=== PATIENT | male | born 1930 | race Caucasian/White ===

== ENCOUNTER 2018-12-09 09:10 | Inpatient (IN) | payer MEDICARE, OTHER ==
[~2018-12-09] VITALS: Ht 177.8 cm; Wt 84.8 kg
[2018-12-09] MEDS ORDERED: NS IV 1000 ML 1,000 ML IV ONE (09:25)
[2018-12-09] MEDS ORDERED: ACETAMINOPHEN 500 MG TAB (TYLENOL) PO ONE (09:30)
[2018-12-09 09:35] LABS: BASOPHILS % (AUTO) 0 % (0-10); EOSINOPHILS # (AUTO) 0.1 10^3/uL (0.0-0.3); EOSINOPHILS % (AUTO) 0 % (0-10); HEMATOCRIT 42 % (40-54); HEMOGLOBIN 14.2 G/DL (13.3-17.7); LYMPHOCYTES # (AUTO) 0.3 X 10^3 (1.0-4.0); LYMPHOCYTES % (AUTO) 2 % (12-44); MEAN CORPUSCULAR HEMOGLOBIN 31 PG (25-34); MEAN CORPUSCULAR HGB CONC 34 G/DL (32-36); MEAN CORPUSCULAR VOLUME 90 FL (80-99); MEAN PLATELET VOLUME 9.1 FL (7.4-10.4); MONOCYTES # (AUTO) 0.3 X 10^3 (0.0-1.0); MONOCYTES % (AUTO) 2 % (0-12); NEUTROPHILS # (AUTO) 13.2 X 10^3 (1.8-7.8); NEUTROPHILS % (AUTO) 95 % (42-75); PLATELET COUNT 255 10^3/uL (130-400); RED CELL DISTRIBUTION WIDTH 13.5 % (10.0-14.5); WHITE BLOOD COUNT 13.9 10^3/uL (4.3-11.0)
[2018-12-09] MEDS ORDERED: LEVE750T62 PO (09:45)
[2018-12-09 09:48] LABS: INR 1.1 (0.8-1.4); PROTHROMBIN TIME PATIENT 14.6 SEC (12.2-14.7)
[2018-12-09 09:55] LABS: ALANINE AMINOTRANSFERASE 15 U/L (0-55); ALBUMIN 3.9 GM/DL (3.2-4.5); ALKALINE PHOSPHATASE 90 U/L (40-136); BILIRUBIN,TOTAL 0.9 MG/DL (0.1-1.0); BUN/CREATININE RATIO 23; CALCIUM 9.3 MG/DL (8.5-10.1); CARBON DIOXIDE 26 MMOL/L (21-32); CHLORIDE 103 MMOL/L (98-107); CREATININE SERUM 1.06 MG/DL (0.60-1.30); GFR ESTIMATED > 60; GLUCOSE 95 MG/DL (70-105); POTASSIUM 4.4 MMOL/L (3.6-5.0); SODIUM 134 MMOL/L (135-145); TOTAL PROTEIN 7.3 GM/DL (6.4-8.2)
[2018-12-09 10:08] LABS: BAND NEUTROPHILS 6 %; BASOPHILS % (MANUAL) 0 %; EOSINOPHILS % (MANUAL) 0 %; LYMPHOCYTES % (MANUAL) 2 %; MONOCYTES % (MANUAL) 2 %; NEUTROPHILS % (MANUAL) 90 %; RBC MORPH NORMAL
--- NOTE | 2018-12-09 10:08 | Diagnostic Imaging Report ---
INDICATION: Shaking, stiffness COMPARISON: None available TECHNIQUE: Single radiograph of the chest dated 12/09/2018. FINDINGS: The cardiac silhouette is at the upper limits of normal in size. No significant pulmonary vascular congestion. The right lung is clear. Blunting of the left costophrenic sulcus with obscuration of the lateral aspect of the left hemidiaphragm. No right-sided pleural effusion. No pneumothorax. Scattered osseous degenerative changes without acute osseous abnormality. IMPRESSION: Blunting of the left costophrenic angle which may relate to small amount of pleural fluid or pleural scarring. Prominent epicardial fat pad would appear similar. Focal infiltrate less likely. Comparison to prior imaging would be beneficial. Dictated by: Dictated on workstation # [id number]
[2018-12-09 11:01] LABS: BILIRUBIN,URINE NEGATIVE (NEGATIVE); CLARITY,URINE CLEAR; COLOR,URINE YELLOW; GLUCOSE, URINE (UA) NEGATIVE (NEGATIVE); KETONES,URINE NEGATIVE (NEGATIVE); LEUKOCYTE ESTERASE ,URINE NEGATIVE (NEGATIVE); NITRITE,URINE NEGATIVE (NEGATIVE); PH,URINE 6.5 (5-9); PROTEIN,URINE NEGATIVE (NEGATIVE); UROBILINOGEN,URINE NORMAL (NORMAL)
[2018-12-09 11:09] LABS: BACTERIA,URINE NEGATIVE /HPF; RBC,URINE RARE /HPF; SQUAMOUS EPITHELIAL CELL,UR RARE /HPF; WBC,URINE RARE /HPF
[2018-12-09] MEDS ORDERED: PIPERACILLIN/TAZOBACTAM (BULK) 4.5 GM in NS (IVPB) 100 ML IV ONE (11:30)
--- NOTE | 2018-12-09 11:57 | ED General ---
General Chief Complaint: General Problems/Pain Stated Complaint: SHAKING,STIFFNESS Nursing Triage Note: PT BROUGHT IN BY [facility] FROM [facility] WITH COMPLAINT OF SHAKINESS, WEAKNESS, AND STIFFNESS. PT STATES HE HAD DIFFICULTY WALKING TO THE BATHROOM THIS MORNING. DENIES PAIN. Nursing Sepsis Screen: No Definite Risk Source of Information: Patient, EMS, Family Exam Limitations: No Limitations History of Present Illness Date Seen by Provider: December 09, 2018 Time Seen by Provider: 09:18 Initial Comments This 88-year-old gentleman presents to the emergency room from assisted living by EMS for reasons of shaking and stiffness. He is noted to be febrile on arrival. He complains of chills along with his shivering. Today he had significant difficulty ambulating. He has not slept well for the past couple of days. He is disoriented to month but oriented to person and place. He reportedly has some short-term memory difficulties and may be developing early dementia. notes that he has coughed some over the past couple of days. Allergies and Home Medications Allergies Coded Allergies: No Known Drug Allergies (Unverified , 12/09/18) Patient Home Medication List Home Medication List Reviewed: Yes Review of Systems Review of Systems Constitutional: see HPI EENTM: no symptoms reported Respiratory: see HPI Cardiovascular: no symptoms reported Gastrointestinal: no symptoms reported Genitourinary: no symptoms reported Musculoskeletal: see HPI Skin: no symptoms reported Psychiatric/Neurological: See HPI Hematologic/Lymphatic: No Symptoms Reported Immunological/Allergic: no symptoms reported Past Qsmfatr-Hqyeul-Hgtyoj Hx Past Med/Social Hx: Reviewed and Corrections made Patient Social History Alcohol Use: Denies Use Recreational Drug Use: No Smoking Status: Never a Smoker Recent Foreign Travel: No Contact w/Someone Who Travel: No Recent Infectious Disease Expo: No Recent Hopitalizations: No Immunizations Up To Date Tetanus Booster (TDap): Unknown Seasonal Allergies Seasonal Allergies: No Past Medical History Surgeries: Yes Coronary Stent Respiratory: No Cardiac: Yes Coronary Artery Disease (coronary vasospasm) Neurological: Yes Concussion, Dementia (memory difficulty, possible early dementia), Seizure Disorder, TIA Reproductive Disorders: No Gastrointestinal: Yes (gastroparesis) Endocrine: No HEENT: No Cancer: No Psychosocial: No Integumentary: No Physical Exam-Suspected Sepsis Physical Exam Vital Signs Vital Signs - First Documented 12/09/18 09:17 Temp 101.1 Pulse 113 Resp 20 B/P (MAP) 98/65 (76) Pulse Ox 92 O2 Delivery Room Air Capillary Refill : Less Than 3 Seconds Blood Pressure Mean: 76 Height, Weight, BMI Height: 5'10.00" Weight: 187lbs. oz. 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 manager II-XII Norm as Tested, Motor Weakness (mild, global) Skin: normal color, warm/dry Focused Exam Lactate Level 12/09/18 09:22: Lactic Acid Level 1.33 Lactic Acid Level Laboratory Tests Test 12/09/18 09:22 Lactic Acid Level 1.33 MMOL/L (0.50-2.00) Progress/Results/Core Measures Suspected Sepsis Recent Fever Within 48 Hours: No Infection Criteria Present: None New/Unexplained Altered Menta: No Sepsis Screen: No Definite Risk SIRS Temperature:101.1 Pulse: 113 Respiratory Rate: 20 Laboratory Tests 12/09/18 09:22: White Blood Count 13.9H Blood Pressure 98 /65 Mean: 76 12/09/18 09:22: Lactic Acid Level 1.33 Laboratory Tests 12/09/18 09:22: Creatinine 1.06, INR Comment 1.1, Platelet Count 255, Total Bilirubin 0.9 Results/Orders Lab Results Laboratory Tests Test 12/09/18 09:22 12/09/18 10:55 Range/Units White Blood Count 13.9 H 4.3-11.0 10^3/uL Red Blood Count 4.64 4.35-5.85 10^6/uL Hemoglobin 14.2 13.3-17.7 G/DL Hematocrit 42 40-54 % Mean Corpuscular Volume 90 80-99 FL Mean Corpuscular Hemoglobin 31 25-34 PG Mean Corpuscular Hemoglobin Concent 34 32-36 G/DL Red Cell Distribution Width 13.5 10.0-14.5 % Platelet Count 255 130-400 10^3/uL Mean Platelet Volume 9.1 7.4-10.4 FL Neutrophils (%) (Auto) 95 H 42-75 % Lymphocytes (%) (Auto) 2 L 12-44 % Monocytes (%) (Auto) 2 0-12 % Eosinophils (%) (Auto) 0 0-10 % Basophils (%) (Auto) 0 0-10 % Neutrophils # (Auto) 13.2 H 1.8-7.8 X 10^3 Lymphocytes # (Auto) 0.3 L 1.0-4.0 X 10^3 Monocytes # (Auto) 0.3 0.0-1.0 X 10^3 Eosinophils # (Auto) 0.1 0.0-0.3 10^3/uL Basophils # (Auto) 0.0 0.0-0.1 10^3/uL Neutrophils % (Manual) 90 % Lymphocytes % (Manual) 2 % Monocytes % (Manual) 2 % Eosinophils % (Manual) 0 % Basophils % (Manual) 0 % Band Neutrophils 6 % Blood Morphology Comment NORMAL Prothrombin Time 14.6 12.2-14.7 SEC INR Comment 1.1 0.8-1.4 Activated Partial Thromboplast Time 30 24-35 SEC Sodium Level 134 L 135-145 MMOL/L Potassium Level 4.4 3.6-5.0 MMOL/L Chloride Level 103 98-107 MMOL/L Carbon Dioxide Level 26 21-32 MMOL/L Anion Gap 5 5-14 MMOL/L Blood Urea Nitrogen 24 H 7-18 MG/DL Creatinine 1.06 0.60-1.30 MG/DL Estimat Glomerular Filtration Rate > 60 BUN/Creatinine Ratio 23 Glucose Level 95 70-105 MG/DL Lactic Acid Level 1.33 0.50-2.00 MMOL/L Calcium Level 9.3 8.5-10.1 MG/DL Corrected Calcium 9.4 8.5-10.1 MG/DL Total Bilirubin 0.9 0.1-1.0 MG/DL Aspartate Amino Transf (AST/SGOT) 22 5-34 U/L Alanine Aminotransferase (ALT/SGPT) 15 0-55 U/L Alkaline Phosphatase 90 40-136 U/L Total Protein 7.3 6.4-8.2 GM/DL Albumin 3.9 3.2-4.5 GM/DL Urine Color YELLOW Urine Clarity CLEAR Urine pH 6.5 5-9 Urine Specific [place] 1.015 L 1.016-1.022 Urine Protein NEGATIVE NEGATIVE Urine Glucose (UA) NEGATIVE NEGATIVE Urine Ketones NEGATIVE NEGATIVE Urine Nitrite NEGATIVE NEGATIVE Urine Bilirubin NEGATIVE NEGATIVE Urine Urobilinogen NORMAL NORMAL MG/DL Urine Leukocyte Esterase NEGATIVE NEGATIVE Urine RBC (Auto) NEGATIVE NEGATIVE Urine RBC RARE /HPF Urine WBC RARE /HPF Urine Squamous Epithelial Cells RARE /HPF Urine Crystals NONE /LPF Urine Bacteria NEGATIVE /HPF Urine Casts NONE /LPF Urine Mucus NEGATIVE /LPF Urine Culture Indicated NO My Orders Orders - BRETT RASCON MD Cbc With Automated Diff (12/09/18 09:23) Comprehensive Metabolic Panel (12/09/18:23) Blood Culture (12/09/18:23) Sputum Culture (12/09/18:23) Urinalysis (12/09/18:23) Urine Culture (12/09/18:23) Protime With Inr (12/09/18:) Partial Thromboplastin Time (12/09/18:23) Chest 1 View, Ap/Pa Only (12/09/18 09:23) Ed Iv/Invasive Line Start (12/09/18 09:23) Ed Iv/Invasive Line Start (12/09/18:23) Vital Signs Adult Sepsis Patie Q15M (12/09/18:23) O2 (12/09/18 09:23) Remove Rings In Anticipation O (12/09/18:23) Lactic Acid Analyzer (12/09/18:23) Ns Iv 1000 Ml (Sodium Chloride 0.9%) (12/09/18 09:25) Acetaminophen Tablet (Tylenol Tablet) (12/09/18 09:30) Manual Differential (12/09/18 09:22) Piperacillin/Tazobactam (Bulk) (Zosyn In (12/09/18 11:30) Medications Given in ED Current Medications Medications Dose Ordered Sig/Chaparrita Route Start Time Stop Time Status Last Admin Dose Admin Acetaminophen 1,000 mg ONCE ONCE PO 12/09/18 09:30 12/09/18 09:31 DC 12/09/18 09:35 1,000 MG Piperacillin Sod/ Tazobactam Sod 4.5 gm/Sodium Chloride 120 ml @ 240 mls/hr ONCE ONCE IV 12/09/18 11:30 12/09/18 11:59 DC 12/09/18 11:44 240 MLS/HR Sodium Chloride 1,000 ml @ 0 mls/hr Q0M ONCE IV 12/09/18 09:25 12/09/18 09:26 DC 12/09/18 09:35 1,000 MLS/HR Vital Signs/I&O 12/09/18 09:17 Temp 101.1 Pulse 113 Resp 20 B/P (MAP) 98/65 (76) Pulse Ox 92 O2 Delivery Room Air Capillary Refill : Less Than 3 Seconds Blood Pressure Mean: 76 Progress Note : Progress Note Patient was found to be febrile and tachycardic on presentation. Septic workup was pursued. Pneumonia was suspected based off of chest x-ray. Initial antibiotic therapy was started in the ER with Zosyn. Case was discussed with Dr. Rae who agrees with admission. Since patient is coming from the [facility] assisted living setting, we will continue antibiotic therapy with Rocephin and azithromycin. Patient was also treated with a liter of IV fluid and Tylenol. Diagnostic Imaging Diagonstic Imaging: Xray Plain Films/CT/US/NM/MRI: chest Comments Chest x-ray viewed by me and report reviewed. See report below: NAME: IKER SOL [facility] REC#: [id number] PT STATUS: ADM IN : 1930 PHYSICIAN: BRETT RASCON MD ADMIT DATE: 12/09/18 Signed Date of Exam: 12/09/18 CHEST 1 VIEW, AP/PA ONLY INDICATION: Shaking, stiffness COMPARISON: None available TECHNIQUE: Single radiograph of the chest dated 12/09/2018. FINDINGS: The cardiac silhouette is at the upper limits of normal in size. No significant pulmonary vascular congestion. The right lung is clear. Blunting of the left costophrenic sulcus with obscuration of the lateral aspect of the left hemidiaphragm. No right-sided pleural effusion. No pneumothorax. Scattered osseous degenerative changes without acute osseous abnormality. IMPRESSION: Blunting of the left costophrenic angle which may relate to small amount of pleural fluid or pleural scarring. Prominent epicardial fat pad would appear similar. Focal infiltrate less likely. Comparison to prior imaging would be beneficial. Dictated by: Dictated on workstation # [id number] Dict: 12/09/18 0944 Trans: 12/09/18 1243 Interpreted by: BRAULIO ROSENBERG MD Electronically signed by: BRAULIO ROSENBERG MD 12/09/18 1243 Departure Communication (Admissions) Time/Spoke to Admitting Phy: 11:50 Dr. Ankush Rae Impression Primary Impression: Sepsis Qualified Codes: A41.9 - Sepsis, unspecified organism Additional Impressions: Right lower lobe pneumonia Qualified Codes: J18.1 - Lobar pneumonia, unspecified organism Weakness Disposition: 09 ADMITTED INPATIENT Condition: Improved Admissions Decision to Admit Reason: Admit from ER (General) Decision to Admit/Date: December 09, 2018 Time/Decision to Admit Time: 11:20 BRETT RASCON MD December 09, 2018 11:57
[2018-12-09] MEDS ORDERED: ACETAMINOPHEN 500 MG TAB (TYLENOL) PO PRN (13:45)
[2018-12-09] MEDS ORDERED: ONDANSETRON 4 MG/2 ML (SDV) Z0FRAN IV PRN (13:45)
[2018-12-09] MEDS ORDERED: AZITHROMYCIN 500 MG/NS 250 ML IVPB IV NR ×2 (13:45)
[2018-12-09] MEDS ORDERED: NS IV 1000 ML 1,000 ML IV SCH (13:45)
[2018-12-09] MEDS ORDERED: CHOL20003 PO (14:30)
[2018-12-09] MEDS ORDERED: FOLI0.4T2 PO (14:30)
--- NOTE | 2018-12-09 14:30 | NUR ---
SPOKE WITH THE PATIENT AND HIS ABOUT MEDICATIONS. THEY STATE THE ONLY PRESCRIPTION HE IS TAKING IS THE KEPPRA ER 750MG BID, IT WAS LAST FILLED AT [facility] ON 11-10-18 FOR 90 DAYS ACCORDING TO THE EXT MED HX. THEY STATE THEY RECENTLY MOVED HERE FROM [place] AND IN THE MOVE LOST HIS KEPPRA TABLETS SO HAD THEM FILLED AT [facility], SINCE THEN THEY HAVE FOUND THE LOST BOTTLE SO HE HAD EXTRAS AND HAS NOT REFILLED AT [facility] YET. HE TAKES VITAMIN D AND FOLIC ACID OTC DAILY.
[2018-12-09 15:15] VITALS: BP 98/65
[2018-12-09] MEDS ORDERED: RT-ALBUTEROL SULF 2.5 MG/3 ML PRE-MIX VIAL INH PRN (15:30)
[2018-12-09 15:32] VITALS: BP 98/65
[2018-12-09 16:00] VITALS: BP 108/59
[2018-12-09] MEDS: cefTRIAXone 1,000 MG/SWFI 10 ML IV PUSH IV SCH ×2 (17:18)
[2018-12-09] MEDS: RT-ALBUTEROL SULF 2.5 MG/3 ML PRE-MIX VIAL INH SCH (19:19)
[2018-12-09 20:00] VITALS: BP 103/59
[2018-12-09 23:44] VITALS: BP 94/55
[2018-12-10 03:54] VITALS: BP 111/54
[2018-12-10] MEDS: RT-ALBUTEROL SULF 2.5 MG/3 ML PRE-MIX VIAL INH SCH ×2 (07:29→19:28)
[2018-12-10 08:00] VITALS: BP 103/57
[2018-12-10] MEDS: AZITHROMYCIN 250 MG TAB (ZITHROMAX) PO SCH (09:15)
--- NOTE | 2018-12-10 12:43 | History & Physical-Hospitalist ---
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 They have been living at [facility] an assisted living facility. Their children are here this morning and living in [place]. The ultimate plan as they were not able to get a sufficient assisted living facility in their home [place], is to stay here until a new facility currently being built opens. The patient and his lives in [place] immediately prior to this move. The states that in the recent past he has seemingly been declining more rapidly. He becomes quite forgetful. During the last week he began to kick brown rice on the stove and then walked away. It burned before he returned. At any rate he had been having issues with frequency of urination and very small amounts of urine production. He had a TURP in 2013. She describes symptoms suggesting the possibility of urge incontinence as well. Finally he has been having some incontinence of stool as well he became more clearly ill on and by 03 100 on Wednesday was again having sweats and chills. TheY then later came to the emergency room where he was found to have a temperature maximum of 101.1. His white blood count was 13,900. The laboratory called me first thing this morning to report that he was growing gram-negative rods from his blood. Date Seen 12/10/18 Time Seen by a Provider: 12:38 Attending Physician Ankush Aguirre MD PCP Mack Strickland DO Referring Physician Date of Admission December 09, 2018 at 12:02 Home Medications & Allergies Home Medications Reviewed patient Home Medication Reconciliation performed by pharmacy medication reconciliations collections technician and/or nursing. Patients Allergies have been reviewed. Allergies Allergies Coded Allergies No Known Drug Allergies (Unverified12/09/18) Past Eyhekpe-Dafhmq-Awkaph Hx Past Med/Social Hx: Reviewed Nursing Past Med/Soc Hx, Reviewed and Corrections made Patient Social History Alcohol Use: Denies Use Recreational Drug Use: No Smoking Status: Never a Smoker Recent Foreign Travel: No Contact w/other who traveled: No Recent Hopitalizations: No Recent Infectious Disease Expo: No Immunizations Up To Date Tetanus Booster (TDap): Unknown Seasonal Allergies Seasonal Allergies: No Past Medical History Surgeries: Coronary Stent Cardiac: Coronary Artery Disease (coronary vasospasm) Neurological: Concussion, Dementia (memory difficulty, possible early dementia), Seizure Disorder, TIA Reproductive: No Review of Systems Constitutional: see HPI EENTM: no symptoms reported Respiratory: no symptoms reported Cardiovascular: no symptoms reported Gastrointestinal: diarrhea Genitourinary: see HPI, frequency, hesitancy, incontinence, nocturia Musculoskeletal: other (he uses a cane and has had several falls) Psychiatric/Neurological: Seizure (evident with several apparent tonic episodes over the last 2 or 3 years.), Weakness, Other (increasing episodes of confusion.) Physical Exam Physical Exam Vital Signs Vital Signs - First Documented 12/09/18 09:17 Temp 101.1 Pulse 113 Resp 20 B/P (MAP) 98/65 (76) Pulse Ox 92 O2 Delivery Room Air Capillary Refill : Less Than 3 Seconds Height, Weight, BMI Height: 5'10.00" Weight: 187lbs. 0.0oz. 84.607184ww; 26.8 BMI Method:Stated General Appearance: No Apparent Distress, WD/WN, Other (well groomed) HEENT: Normal ENT Inspection Neck: Normal Inspection Respiratory: Chest Non Tender, Lungs Clear, Normal Breath Sounds, No Accessory Muscle Use, No Respiratory Distress Cardiovascular: Regular Rate, Rhythm, No Edema, No Gallop, No JVD, No Murmur, Normal Peripheral Pulses Gastrointestinal: Normal Bowel Sounds, No Organomegaly, No Pulsatile Mass, Non Tender, Soft Back: Normal Inspection Neurologic/Psychiatric: Alert, Other (he exhibited several statements with confusion over timing of events) Skin: Normal Color Results Results/Procedures Labs Laboratory Tests 12/09/18 09:22 Patient resulted labs reviewed. Assessment/Plan Admission Diagnosis Bacteremia with rigors. 2.urinary incontinence and dysfunction. 3.reported increasing confusion over recent months Admission Status: Inpatient Order (span 2 midnights) Reason for Inpatient Admission: Bacteremia. Clinical Quality Measures DVT/VTE Risk/Contraindication: Risk Factor Score Per Nursin RFS Level Per Nursing on Admit: 4+=Very High ANKUSH AGUIRRE MD Dec 10, 2018 12:43
[2018-12-10] MEDS: cefTRIAXone 1,000 MG/SWFI 10 ML IV PUSH IV SCH ×2 (14:44)
[2018-12-10 15:57] VITALS: BP 119/53
--- NOTE | 2018-12-10 17:51 | NUR ---
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
[2018-12-10 20:06] VITALS: BP 127/66
[2018-12-10] MEDS ORDERED: LEVETIRACETAM 750 MG PO SCH (21:00)
[2018-12-11] VITALS (7 sets, daily range): BP systolic 113–128; BP diastolic 55–71
[2018-12-11] MEDS ORDERED: PATIENT MAY USE OWN MEDS, ALL MC SCH (08:30)
[2018-12-11] MEDS: AZITHROMYCIN 250 MG TAB (ZITHROMAX) PO SCH (09:23)
[2018-12-11] MEDS: LEVETIRACETAM 750 MG PO SCH ×2 (09:23→21:10)
[2018-12-11] MEDS: cefTRIAXone 1,000 MG/SWFI 10 ML IV PUSH IV SCH ×2 (14:09)
--- NOTE | 2018-12-11 14:19 | Progress Note-Hospitalist ---
Progress Note Progress Notes/Assess & Plan Date Seen 12/11/18 Time Seen by Provider: 14:15 Assessment & Plan The patient is much more lively this morning than yesterday. His orientation also appears to be improved. He is afebrile. The culture and sensitivity are not available at this point. He has an appetite and is eating well. Physical exam: Lungs are clear to auscultation. CV is regular. Abdomen is soft. Extremities show no pedal edema. Impression: Gram-negative bacteremia. Plan: Continue present antibiotics. Hope for ID and sensitivity Focused Exam Lactate Level 12/09/18 09:22: Lactic Acid Level 1.33 SABINE AGUIRRE MD Dec 11, 2018 14:19
[2018-12-12] VITALS: BP 104/85
[2018-12-12 04:00] VITALS: BP 118/63
[2018-12-12 04:58] LABS: BASOPHILS % (AUTO) 1 % (0-10); EOSINOPHILS # (AUTO) 0.5 10^3/uL (0.0-0.3); EOSINOPHILS % (AUTO) 7 % (0-10); HEMATOCRIT 38 % (40-54); HEMOGLOBIN 12.9 G/DL (13.3-17.7); LYMPHOCYTES # (AUTO) 1.1 X 10^3 (1.0-4.0); LYMPHOCYTES % (AUTO) 16 % (12-44); MEAN CORPUSCULAR HEMOGLOBIN 31 PG (25-34); MEAN CORPUSCULAR HGB CONC 34 G/DL (32-36); MEAN CORPUSCULAR VOLUME 90 FL (80-99); MEAN PLATELET VOLUME 9.5 FL (7.4-10.4); MONOCYTES # (AUTO) 1.2 X 10^3 (0.0-1.0); MONOCYTES % (AUTO) 18 % (0-12); NEUTROPHILS # (AUTO) 4.1 X 10^3 (1.8-7.8); NEUTROPHILS % (AUTO) 59 % (42-75); PLATELET COUNT 229 10^3/uL (130-400); RED CELL DISTRIBUTION WIDTH 13.3 % (10.0-14.5); WHITE BLOOD COUNT 6.9 10^3/uL (4.3-11.0)
[2018-12-12 08:00] VITALS: BP 124/62
[2018-12-12] MEDS: AZITHROMYCIN 250 MG TAB (ZITHROMAX) PO SCH (08:45)
[2018-12-12] MEDS: LEVETIRACETAM 750 MG PO SCH ×2 (08:45→20:39)
[2018-12-12 12:00] VITALS: BP 124/61
[2018-12-12] MEDS: CEFEPIME 2,000 MG/SWFI 20 ML IV PUSH IV SCH ×2 (14:29)
--- NOTE | 2018-12-12 15:23 | Progress Note-Hospitalist ---
Progress Note Progress Notes/Assess & Plan Date Seen 12/12/18 Time Seen by Provider: 02:45 Assessment & Plan The patient reports that he feels a bit better. We have received the culture report on his blood cultures. Regrettably these are growing Pseudomonas and are not sensitive to our empiric first choice of antibiotics this has been adjusted. Physical exam: He is alert. Lungs show rather distant breath sounds but no wheezing or rhonchi. CV is regular. Impression: Pseudomonas bacteremia. Plan: See above. SABINE AGUIRRE MD Dec 12, 2018 15:23
[2018-12-12 15:35] VITALS: BP 129/71
--- NOTE | 2018-12-12 15:45 | NUR ---
Pastoral care visit.
[2018-12-12 19:30] VITALS: BP 116/57
[2018-12-13] VITALS (7 sets, daily range): BP systolic 110–125; BP diastolic 60–74
[2018-12-13] MEDS: LEVETIRACETAM 750 MG PO SCH ×2 (08:51→20:36)
[2018-12-13] MEDS: CEFEPIME 2,000 MG/SWFI 20 ML IV PUSH IV SCH ×2 (08:51)
[2018-12-13] MEDS: AZITHROMYCIN 250 MG TAB (ZITHROMAX) PO SCH (08:51)
--- NOTE | 2018-12-13 12:34 | Progress Note-Hospitalist ---
Progress Note Progress Notes/Assess & Plan Date Seen 12/13/18 Time Seen by Provider: 12:31 Assessment & Plan The patient is feeling more vigorous. He is now at day 2 of treatment of the blood culture with Pseudomonas. This can be given and a once a day injection but he will need to complete 10 days. This has been cleared by the family and would allow them to return to the [facility]. Accordingly we will seek to plant a more in during IV site. Physical exam: Lungs are clear to auscultation. CV is regular without murmur. Extremities show no pedal edema. Vital signs are stable. Impression: Pseudomonas bacteremia Plan: Arrange for PICC line SABINE AGUIRRE MD Dec 13, 2018 12:34
[2018-12-13] MEDS ORDERED: CEFE2PIG IV (12:52)
--- NOTE | 2018-12-13 13:03 | NUR ---
CM/RYLAN. [place] [facility] with his spouse Laya. OP IV Rx: Coordinated with [facility] for Cefepime daily x 8 days. Son Dyllan Shah visited with his parents and coordinated that Mrs. Shah will transport patient daily for this regime. SUMMARY: Patient and are considered independent per Bernabe RN/Estella and [facility] Familia/Camille. The facility does not provide any daily services to them and confirmed they were not able to assist in any way with home infusion. Options were HHC with home infusion vs OP services, and there were concerns for any home administration. Bahman Mijares was instrumental in discussing this with his parents and getting the final plan in place. PICC line ordered, patient will be discharged today if PICC is placed timely. Coordinated with [facility] staff.
--- NOTE | 2018-12-13 13:22 | NUR ---
NOTE THAT DR AGUIRRE ORDERED PICC LINE PLACEMENT -- PICC LINE RNS ON FLOOR AND QUESTIONED PICC LINE OR MID LINE -- THIS RN TALKED TO DR AGUIRRE HE VOICED WHICH EVERY THEY FELT WOULD GET HIM THROUGH 2 WEEKS OF OUTPT ANTIBXS -- ADVISED HIM THEY CHOSSE MID LINE PLACEMENT --
--- NOTE | 2018-12-13 13:32 | Occupational Therapy Eval ---
OT Evaluation-General/PLF Medical Diagnosis Admission Date December 09, 2018 at 12:02 Medical Diagnosis: Gram-negative bacteremia. Onset Date: Dec 13, 2018 Therapy Diagnosis Therapy Diagnosis: impaired ADLs and mobility Height/Weight Height (Feet): 5 Height (Inches): 10.00 Weight (Pounds): 187 Weight (Ounces): 0.0 Precautions Precautions/Isolations: Fall Prevention, Standard Precautions Safety Interventions: Notify Family, Bed Exit Alarm Weight Bear Status Weight Bearing Restriction: Weight Bearing/Tolerated Referral Referral Reason: Activity Tolerance, Self Care, Evaluation/Treatment Medical History Additional Medical History Surgeries: Coronary Stent Cardiac: Coronary Artery Disease (coronary vasospasm) Neurological: Concussion, Dementia (memory difficulty, possible early dementia), Seizure Disorder, TIA Reproductive: No Current History per h&P: "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 They have been living at an assisted living facility. Their children are here this morning and living in [place]. The ultimate plan as they were not able to get a sufficient assisted living facility in their home [place], is to stay here until a new facility currently being built opens. The patient and his lives in [place] immediately prior to this move. The states that in the recent past he has seemingly been declining more rapidly. He becomes quite forgetful. During the last week he began to kick brown rice on the stove and then walked away. It burned before he returned. At any rate he had been having issues with frequency of urination and very small amounts of urine production. He had a TURP in 2013. She describes symptoms suggesting the possibility of urge incontinence as well. Finally he has been having some incontinence of stool as well he became more clearly ill on and by 03 100 on Wednesday was again having sweats and chills. TheY then later came to the emergency room where he was found to have a temperature maximum of 101.1. His white blood count was 13,900. The laboratory called me mery jane this morning to report that he was growing gram-negative rods from his blood." Reviewed History: Yes Social History Home: Assisted Living (independent living with spouse) Current Living Status: Significant Other Entry Into Home: Level Entry ADL-Prior Level of Function Therapy Code Descriptions/Definitions Functional [place] Measure: 0=Not Assessed/NA 4=Minimal Assistance 1=Total Assistance 5=Supervision or Setup 2=Maximal Assistance 6=Modified [place] 3=Moderate Assistance 7=Complete [place] Therapy Quality Codes: 6 Independent with activity with or without an assistive device 5 Patient requires set up or clean up by helper. Patient completes activity by themselves 4 Supervision or touching assist (CGA). [place] provide cues , steadying assist 3 The helper provides less than half the effort to complete the activity 2 The helper provides more than half the effort to complete the activity 1 Dependent. The helper does all the effort to complete an activity 7 Patient refused to complete or attempt activity 9 The patient did not perform the activity before the current illness or injury 88 Not attempted due to Medical conditions or safety concerns Functional Abilities and Goals: Independent: Patient completed the activities by him/herself, with or without an assistive device, with no assistance from a helper. Needed Some Help: Patient needed partial assistance from another person to complete activities. Dependent: A helper completed the activities for the patient. Unknown: Not Applicable: Self Care: Independent Functional Cognition: Independent DME/Equipment: Tub/Shower Drive Self: No OT Current Status Subjective pt lying in bed upon O T arrival. pt agreed to OT evaluation session. spouse present in room. pt complains of no pain. Pain Numeric Pain Scale: 0-No Pain Appearance pt is oriented but is forgetful throughout session. I.e. pt is instructed to ambulate to chair. upon standing pt stated "what are we doing again?" Mental Status/Objective Patient Orientation: Person, Place, Time, Situation Current Glasses/Contacts: Yes Hearing Aids: Yes Dentures/Partials: Yes Hand Dominance: Right Upper Extremity ROM WFL Upper Extremity Coordination WFL carlos UE Upper Extremity Sensation WFL carlos UE Upper Extremity Strength WFL carlos UE ADL-Treatment Therapy Code Descriptions/Definitions Functional [place] Measure: 0=Not Assessed/NA 4=Minimal Assistance 1=Total Assistance 5=Supervision or Setup 2=Maximal Assistance 6=Modified [place] 3=Moderate Assistance 7=Complete [place] Therapy Quality Codes: 6 Independent with activity with or without an assistive device 5 Patient requires set up or clean up by helper. Patient completes activity by themselves 4 Supervision or touching assist (CGA). [place] provide cues , steadying assist 3 The helper provides less than half the effort to complete the activity 2 The helper provides more than half the effort to complete the activity 1 Dependent. The helper does all the effort to complete an activity 7 Patient refused to complete or attempt activity 9 The patient did not perform the activity before the current illness or injury 88 Not attempted due to Medical conditions or safety concerns pt dem ability to perform LB dressing with increased timing secondary to decrease ROM in left LE( PLOF), UB dressing (robe) with set up, grooming (washin ghands with CGA for saety/ balance while standing, and functional transfer with CGA for safety/ balance while using RW. noted decrease safety awareness with RW requiring MOD VC for safety. pt stated he uses FRW and SPC at home. Education Teaching Recipient: Patient, Family Teaching Methods: Discussion Response to Teaching: Verbalize Understanding OT Short Term Goals Short Term Goals Grooming(FIM): 5 Bathing(FIM): 5 Lower Body Dressing(FIM): 5 Toileting(FIM): 5 Transfers (B,C,W/C) (FIM): 5 Toilet/Commode Transfer(FIM): 5 1=Demonstrate adherence to instructed precautions during ADL tasks. 2=Patient will verbalize/demonstrate understanding of assistive devices/modifications for ADL. 3=Patient will improve strength/tolerance for activity to enable patient to perform ADL's. OT [employer] Systems Designer Goals Residential Goals Grooming(FIM): 6 Bathing(FIM): 6 Bathing Location: L Arm, R Arm, L Upper Leg, R Upper Leg, L Lower Leg (including foot), R Lower Leg (including foot), Chest, Abdomen, Buttocks, Perineal Area Lower Body Dressing(FIM): 6 Toileting(FIM): 6 Transfers (B,C,W/C) (FIM): 6 Toilet/Commode Transfer(FIM): 6 Additional Goals: 1-Demonstrate ADL Tasks, 2-Verbalize Understanding, 3- ImproveStrength/Gagan 1=Demonstrate adherence to instructed precautions during ADL tasks. 2=Patient will verbalize/demonstrate understanding of assistive devices/modifications for ADL. 3=Patient will improve strength/tolerance for activity to enable patient to perform ADL's. OT Education/Plan Problem List/Assessment Assessment: Decreased Activ Tolerance, Impaired Cognition, Impaired Funct Balance, Impaired I ADL's, Impaired Self-Care Skills pt presents with functional limitations affecting areas of ADL/ functional transfers. pt would benefit from OT services to increase independence with ADLs/ functional transfers. recommended 24.7 supervision when d/c for safety awareness as pt is very forgetful. Discharge Recommendations Plan/Recommendations: Continue POC Therapy D/C Recommendations: 24 hr Supervision Treatment Plan/Plan of Care Treatment,Training & Education: Yes Patient would benefit from OT for education, treatment and training to promote independence in ADL's, mobility, safety and/or upper extremity function for ADL's. Plan of Care: ADL Retraining, Functional Mobility, Group Exercise/Act as Ind, UE Funct Exercise/Act Treatment Duration: Dec 27, 2018 Frequency: 5 times per week Estimated Hrs Per Day: .25 hour per day Agreement: Yes Rehab Potential: Fair Time/GCodes Start Time: 13:05 Stop Time: 13:25 Billed Treatment Time EVM 20 minutes CANDIDO LAURENT OT Dec 13, 2018 13:32
--- NOTE | 2018-12-13 14:19 | Physical Therapy Evaluation ---
PT Evaluation-General Medical Diagnosis Admission Date December 09, 2018 at 12:02 Medical Diagnosis: Gram-negative bacteremia. Onset Date: Dec 13, 2018 Therapy Diagnosis Therapy Diagnosis: debility Height/Weight Height (Feet): 5 Height (Inches): 10.00 Weight (Pounds): 187 Weight (Ounces): 0.0 Precautions Precautions/Isolations: Fall Prevention, Standard Precautions Weight Bear Status Right Lower Extremity: Right Full Weight Bearing Left Lower Extremity: Left Full Weight Bearing Referral Physician: Butch Reason for Referral: Evaluation/Treatment Medical History Pertinent Medical History: CAD, Dementia Current History EMS secondary to shaky,weakness and stiffness with difficulty walking Reviewed History: Yes Social History Home: Assisted Living (independent living with spouse) Current Living Status: Significant Other Entry Into Home: Level Entry Prior/Core FIM Prior Level of Function Therapy Code Descriptions/Definitions Functional [place] Measure: 0=Not Assessed/NA 4=Minimal Assistance 1=Total Assistance 5=Supervision or Setup 2=Maximal Assistance 6=Modified [place] 3=Moderate Assistance 7=Complete [place] Therapy Quality Codes: 6 Independent with activity with or without an assistive device 5 Patient requires set up or clean up by helper. Patient completes activity by themselves 4 Supervision or touching assist (CGA). [place] provide cues , steadying assist 3 The helper provides less than half the effort to complete the activity 2 The helper provides more than half the effort to complete the activity 1 Dependent. The helper does all the effort to complete an activity 7 Patient refused to complete or attempt activity 9 The patient did not perform the activity before the current illness or injury 88 Not attempted due to Medical conditions or safety concerns Functional Abilities and Goals: Independent: Patient completed the activities by him/herself, with or without an assistive device, with no assistance from a helper. Needed Some Help: Patient needed partial assistance from another person to complete activities. Dependent: A helper completed the activities for the patient. Unknown: Not Applicable: Bed Mobility: 6 Transfers (B,C,W/C) (FIM): 6 Gait: 6 Indoor Mobility (Ambulation): Independent Stairs: Not [place] Prior Devices Use: Other-see list below Prior Device Use: cane PT Evaluation-Current Subjective Patient and spouse agrees to PT. Pain Numeric Pain Scale: 0-No Pain Location: No Pain Reported Objective Patient Orientation: Confused Problem Solving: Fair ROM/Strength ROM Lower Extremities bilateral LE WFL Strength Lower Extremities 4/5 grossly bilaterally Integumentary/Posture Integumentary refer to nursing notes Bowel Incontinence: No Bladder Incontinence: No Posture WFL Neuromuscular (Tone, Coordination, Reflexes) grossly intact Sensory Vision: Functional Hearing: Impaired Hand Dominance: Right Transfers Therapy Code Descriptions/Definitions Functional [place] Measure: 0=Not Assessed/NA 4=Minimal Assistance 1=Total Assistance 5=Supervision or Setup 2=Maximal Assistance 6=Modified [place] 3=Moderate Assistance 7=Complete [place] Transfers (B, C, W/C) (FIM): 6 Scootin Rollin Supine to/from Sit: 6 Sit to/from Stand: 6 Gait Mode of Locomotion: Walk Anticipated Mode of Locomotion: Walk Gait (FIM): 6 Distance (FIM): 3=150 ft Distance: 250' Gait Level of Assist: 6 Gait Assistive Device: FWW Comments/Gait Description functional and safe Balance Sitting Static: Normal Sitting Dynamic: Normal Standing Static: Normal Standing Dynamic: Normal Assessment/Needs 88 y.o. male, will be seen short term by skilled PT to address functional mobility with use of FWW to return to [place] safely. Rehab Potential: Fair PT Short Term Goals Short Term Goals Transfers (B,C,W/C) (FIM): 5 PT Snf Goals Snf Goals PT Snf Goals Time Frame: Dec 16, 2018 Transfers (B,C,W/C) (FIM): 6 Gait (FIM): 6 Gait distance (FIM): 3=150 ft Gait Level of Assist: 6 Gait Assistive Device: FWW PT Plan Treatment/Plan Treatment Plan: Continue Plan of Care Treatment Plan: Education, Functional Activity Gagan, Gait, Safety Treatment Duration: Dec 16, 2018 Frequency: 4 times per week Estimated Hrs Per Day: .25 hour per day Patient and/or Family Agrees t: Yes Time/GCodes Time In: 1400 Time Out: 1409 Total Billed Treatment Time: 9 Total Billed Treatment 1 visit EVLowC 9 min DORA CHAMPAGNE PT Dec 13, 2018 14:19
--- NOTE | 2018-12-13 15:00 | NUR ---
LEFT MESSAGE FOR DR AGUIRRE THAT MID LINE WAS IN
[2018-12-14 04:34] VITALS: BP 114/63
[2018-12-14 08:00] VITALS: BP 94/62
[2018-12-14] MEDS: CEFEPIME 2,000 MG/SWFI 20 ML IV PUSH IV SCH ×2 (08:44)
[2018-12-14] MEDS: LEVETIRACETAM 750 MG PO SCH (08:44)
--- NOTE | 2018-12-14 10:45 | NUR ---
CM/RYLAN. Spoke with patient's spouse this a.m., she will transport patient this afternoon. [facility] tomorrow.
--- NOTE | 2018-12-14 11:20 | NUR ---
Important Message from Medicare presented/reviewed/signed and placed in patient chart. Patient voiced no intention to appeal and deny any needs or further questions at this time.
[2018-12-14 12:00] VITALS: BP 100/68
--- NOTE | 2018-12-14 14:01 | Occ Therapy Progress Note ---
Therapy Progress Note 1355 Pt seen in room. Going home today and doesn't have any concerns about self care needs at home. Goals met to his satisfaction. C OT. visit NOVA BHARDWAJ OT Dec 14, 2018 14:01
--- NOTE | 2018-12-14 14:16 | Progress Note-Hospitalist ---
Progress Note Progress Notes/Assess & Plan Date Seen 12/14/18 Time Seen by Provider: 14:14 Assessment & Plan The patient is doing well. Arrangements have been completed and he will be discharged to complete his course of therapy for Pseudomonas bacteremia as an outpatient. He is to present to animal care supervisor daily@1300 hours. Physical exam: Lungs are clear to auscultation. CV is regular without murmur. Extremities show no pedal edema. Impression: Pseudomonas bacteremia. Plan: Discharge. See discharge sequence for medications and routines. SABINE AGUIRRE MD Dec 14, 2018 14:16
--- NOTE | 2018-12-14 14:18 | Discharge Inst-Simple/Standard ---
Discharge Inst-Standard Patient Instructions/Follow Up Plan of Care/Instructions/FU: Medications as listed on the discharge sequence. Increase activities as tolerated Daily appointment at 1300 hours for IV antibiotics at career guidance counselor. Activity as Tolerated: Yes Discharge Diet: No Restrictions SABINE AGUIRRE MD Dec 14, 2018 14:18
[2018-12-14 16:10] VITALS: BP 116/62
[2018-12-14 18:45] VITALS: BP 116/62
--- NOTE | 2018-12-14 18:45 | NUR ---
SWETAIKER Hendrix demonstrates understanding of discharge instructions and accurately returns instructions upon questioning. Copy of Post-Discharge Instructions and Medication Discharge Instructions given to PATIENT. SWETAIKER Hendrix is able to manage continuing needs after discharge. Patients belongings returned to . Skin dry and intact; no breakdown noted. Patient discharged from [facility] on at 1845. IKER SOL Simeon left floor via WHEELCHAIR, accompanied by SON, , AND STAFF.
--- NOTE | 2018-12-19 10:13 | Physician Query Clarification ---
PQ-Conflicting Diagnosis Admission/Discharge Admission Date: December 09, 2018 at 12:02 Discharge Date: Dec 14, 2018 at 18:45 The medical record reflects the following clinical scenario: History/Risk Factors: Chills Fever Bacteremia documented in H&P. Clinical Findings: T 101.1, Pulse 113, Resp 20, BP 98/65, WBC 13.9, Bands 6, Lactic acid 1.33, Bloo d culture positive Pseudomonas aeruginosa. Treatment:IV Zosyn, IV Azithromycin , IV Rocephin Question: Do you agree with the impression of the Sepsis per Dr. Arshad? Please document a response in Progress Note or Discharge Summary. 1. Yes 2. No 3. Other, with explanation of clinical findings 4. Clinically undetermined, no explanation for clinical findings. Please remember a lack of response to the above will prompt a phone page by CDI/Coding staff. In responding to this query, please exercise your independent professional judgment. The purpose of this communication is to more accurately reflect the complexity of your patients condition. The fact that a question is asked does not imply that any particular answer is desired or expected. Thank you for your timely response to this clarification. Requestors name: [ ] Phone # [ ] THIS PHYSICIAN QUERY FORM IS A PERMANENT PART OF THE MEDICAL RECORD CLAIRE FRANCO Dec 19, 2018 10:13 AMANDA FLOYD Jan 04, 2019 13:11
--- NOTE | 2018-12-19 10:24 | Physician Query Clarification ---
PQ-Conflicting Diagnosis Admission/Discharge Admission Date: December 09, 2018 at 12:02 Discharge Date: Dec 14, 2018 at 18:45 The medical record reflects the following clinical scenario: History/Risk Factors: Fever Chills Clinical Findings: Per Dr. Arshad,pneumonia was suspected based off of chest x-ray. T 101.1, Pulse 113, Resp 20, BP 98/65 Treatment: Albuterol inhalation therapy, IV Zosyn, IV Azithromycin, IV Rocephin. Question: Do you agree with the impression of the Right lower lobe pneumonia per Dr. Arshad? Please document a response in Progress Note or Discharge Summary. 1. Yes 2. No 3. Other, with explanation of clinical findings 4. Clinically undetermined, no explanation for clinical findings. Please remember a lack of response to the above will prompt a phone page by CDI/Coding staff. In responding to this query, please exercise your independent professional judgment. The purpose of this communication is to more accurately reflect the complexity of your patients condition. The fact that a question is asked does not imply that any particular answer is desired or expected. Thank you for your timely response to this clarification. Requestors name: Stefania Diaz [facility] Phone # ext [phone] or [phone] THIS PHYSICIAN QUERY FORM IS A PERMANENT PART OF THE MEDICAL RECORD STEFANIA DIAZ Dec 19, 2018 10:24 AMANDA FLOYD Jan 04, 2019 13:10
--- NOTE | 2019-01-04 14:16 | Discharge Summary-Hospitalist ---
Diagnosis/Chief Complaint Date of Admission December 09, 2018 at 12:02 Date of Discharge Dec 14, 2018 at 18:45 Discharge Date: Dec 14, 2018 Admission Diagnosis Bacteremia with rigors. 2.urinary incontinence and dysfunction. 3.reported increasing confusion over recent months Discharge Diagnosis Pseudomonas bacteremia. 2.sepsis secondary to number 1. 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 He presented to the emergency room with confusion, fever, chills and sweats. Workup in the emergency room showed a 13,900 white count. The UA showed only a rare WBC. The interpretation by the ER physician was that the chest x-ray suggested a left lower lobe pneumonia. Radiologist's reading did not confirm this. The presentation was certainly enough to justify admission and IV antibiotics. He was initially treated with Rocephin and Zithromax on the presumption of clinically acquired pneumonia. Ultimately 2 blood cultures returned positive for Pseudomonas and the antibiotic regimen was altered. She showed slow but steady improvement and was transferred to detention status to complete his IV antibiotic requirements in improving condition. Labs (last 24 hrs) Microbiology 12/09/18 Blood Culture - Final, Complete Pseudomonas aeruginosa See Comments 12/09/18 Urine Culture - Final, Complete NO GROWTH Patient resulted labs reviewed. Discussion & Recommendations Discharge Planning: <30 minutes discharge planning Discharge Home Medications: Active Scripts Active Cefepime-Dextrose 2 gm/50 ml (Cefepime HCl/D5w) 2 Gm/50 Ml Piggyback 2 Gm IV DAILY Reported Folic Acid 0.4 Mg Tablet 0.4 Mg PO DAILY Vitamin D3 (Cholecalciferol (Vitamin D3)) 2,000 Unit Capsule 2,000 Unit PO DAILY Levetiracetam ER (Levetiracetam) 750 Mg Tab.er.24h 750 Mg PO BID Instructions to patient/family Please see electronic discharge instructions given to patient. Clinical Quality Measures DVT/VTE Risk/Contraindication: Risk Factor Score Per Nursin RFS Level Per Nursing on Admit: 4+=Very High SABINE AGUIRRE MD Jan 04, 2019 14:16
== END 2018-12-14 18:45 | disposition home or self-care (01) | DRG 872 ==
LOC: ER 09:18 → 4TH 12:02
PROVIDERS: ADMIT Internal Medicine; ATTEND Internal Medicine
DX: A41.52 Sepsis due to Pseudomonas (principal); N39.41 Urge incontinence; R35.0 Frequency of micturition; R39.11 Hesitancy of micturition; R35.1 Nocturia; R19.7 Diarrhea, unspecified; F03.90 Unspecified dementia, unspecified severity, without behavioral disturbance, psychotic disturbance, mood disturbance, and anxiety; G40.909 Epilepsy, unspecified, not intractable, without status epilepticus; I25.10 Atherosclerotic heart disease of native coronary artery without angina pectoris; R41.3 Other amnesia; K31.84 Gastroparesis; Z95.5 Presence of coronary angioplasty implant and graft; Z86.73 Personal history of transient ischemic attack (TIA), and cerebral infarction without residual deficits
CPT/HCPCS: 36415; 71045; 76937; 80053; 81000; 83605; 85007; 85025; 85027; 85610; 85730; 87040; 87088; 87186; 94640; 94760; 96361; 96365

== ENCOUNTER 2018-12-22 13:02 | Outpatient (RCR) | payer MEDICARE ==
[2018-12-15] MEDS: CEFEPIME 2,000 MG/SWFI 20 ML IV PUSH IV SCH ×2 (13:35)
[2018-12-15 13:45] VITALS: BP 142/82
[2018-12-16 12:43] VITALS: BP 111/65
[2018-12-16] MEDS: CEFEPIME 2,000 MG/SWFI 20 ML IV PUSH IV SCH ×2 (12:52)
[2018-12-17] MEDS: CEFEPIME 2,000 MG/SWFI 20 ML IV PUSH IV SCH ×2 (09:01)
[2018-12-17 09:15] VITALS: BP 108/56
[2018-12-18] MEDS: CEFEPIME 2,000 MG/SWFI 20 ML IV PUSH IV SCH ×2 (09:43)
[2018-12-18 09:53] VITALS: BP 111/67
[2018-12-19] MEDS: CEFEPIME 2,000 MG/SWFI 20 ML IV PUSH IV SCH ×2 (13:18)
[2018-12-19 13:25] VITALS: BP 116/67
[2018-12-20] MEDS: CEFEPIME 2,000 MG/SWFI 20 ML IV PUSH IV SCH ×2 (13:25)
[2018-12-20 13:35] VITALS: BP 99/62
[2018-12-21 13:05] VITALS: BP 116/67
[2018-12-21] MEDS: CEFEPIME 2,000 MG/SWFI 20 ML IV PUSH IV SCH ×2 (13:44)
[~2018-12-22] VITALS: Ht 177.8 cm; Wt 84.8 kg
[~2018-12-22 13:02] MED LIST: CEFE2PIG IV; CHOL20003 PO; FOLI0.4T2 PO; LEVE750T62 PO
[2018-12-22] MEDS: CEFEPIME 2,000 MG/SWFI 20 ML IV PUSH IV SCH ×2 (13:08)
[2018-12-22 13:18] VITALS: BP 133/60
--- NOTE | 2018-12-25 19:33 | Physician Query-Final Dx ---
Final Diagnosis Give Final Diagnosis Please give Final Diagnosis Dr Rae Please give a diagnosis for the Cefepime treatment thank you ARMANDO MELENDEZ Dec 25, 2018 19:32
== END 2018-12-22 13:18 | disposition home or self-care (01) ==
LOC: SDC 13:02
PROVIDERS: ATTEND Internal Medicine
DX: J18.9 Pneumonia, unspecified organism (principal)
CPT/HCPCS: 96365; 96366; 96374; 99211

== ENCOUNTER 2019-01-31 12:22 | Emergency (ER) | payer MEDICARE ==
[~2019-01-31] VITALS: Ht 177.8 cm; Wt 75.7 kg
--- OUTSIDE RECORDS SUMMARY | 2019-01-31 12:26 | XMS REPORT | Continuity of Care Document ---
Author Organization Unknown Address Unknown Allergies Active Description Code Type Severity Reaction Onset Reported/Identified Relationship to Patient Clinical Status Yes No Known Drug Allergies [id number] Drug Allergy Unknown N/A 12/09/2018 Medications There is no data. Problems Date Dx Coded Attending Type Code Diagnosis Diagnosed By 06/10/1317 SABINE AGUIRRE MD Ot J18.9 PNEUMONIA, UNSPECIFIED ORGANISM 12/12/2018 SABINE AGUIRRE MD Ot A41.52 SEPSIS DUE TO PSEUDOMONAS 12/12/2018 SABINE AGUIRRE MD Ot F03.90 UNSPECIFIED DEMENTIA WITHOUT BEHAVIORAL 12/12/2018 SABINE AGUIRRE MD Ot G40.909 EPILEPSY, UNSP, NOT INTRACTABLE, WITHOUT 12/12/2018 SABINE AGUIRRE MD Ot I25.10 ATHSCL HEART DISEASE OF [place] CORONARY 12/12/2018 SABINE AGUIRRE MD Ot J18.1 LOBAR PNEUMONIA, UNSPECIFIED ORGANISM 12/12/2018 SABINE AGUIRRE MD Ot K31.84 GASTROPARESIS 12/12/2018 SABINE AGUIRRE MD Ot N39.41 URGE INCONTINENCE 12/12/2018 SABINE AGUIRRE MD Ot R15.9 FULL INCONTINENCE OF FECES 12/12/2018 SABINE AGUIRRE MD Ot R35.0 FREQUENCY OF MICTURITION 12/12/2018 SABINE AGUIRRE MD Ot R41.3 OTHER AMNESIA 12/12/2018 SABINE AGUIRRE MD Ot Z86.73 PRSNL HX OF TIA (TIA), AND CEREB INFRC W 12/12/2018 SABINE AGUIRRE MD Ot Z95.5 PRESENCE OF CORONARY ANGIOPLASTY IMPLANT 12/14/2018 SABINE AGUIRRE MD Ot A41.52 SEPSIS DUE TO PSEUDOMONAS 12/14/2018 SABINE AGUIRRE MD Ot F03.90 UNSPECIFIED DEMENTIA WITHOUT BEHAVIORAL 12/14/2018 SABINE AGUIRRE MD Ot G40.909 EPILEPSY, UNSP, NOT INTRACTABLE, WITHOUT 12/14/2018 SABINE AGUIRRE MD Ot I25.10 ATHSCL HEART DISEASE OF [place] CORONARY 12/14/2018 SABINE AGUIRRE MD Ot J18.1 LOBAR PNEUMONIA, UNSPECIFIED ORGANISM 12/14/2018 SABINE AGUIRRE MD Ot K31.84 GASTROPARESIS 12/14/2018 SABINE AGUIRRE MD Ot N39.41 URGE INCONTINENCE 12/14/2018 SABINE AGUIRRE MD Ot R15.9 FULL INCONTINENCE OF FECES 12/14/2018 SABINE AGUIRRE MD Ot R19.7 DIARRHEA, UNSPECIFIED 12/14/2018 SABINE AGUIRRE MD Ot R35.0 FREQUENCY OF MICTURITION 12/14/2018 SABINE AGUIRRE MD Ot R35.1 NOCTURIA 12/14/2018 SABINE AGUIRRE MD Ot R39.11 HESITANCY OF MICTURITION 12/14/2018 SABINE AGUIRRE MD Ot R41.3 OTHER AMNESIA 12/14/2018 SABINE AGUIRRE MD Ot Z86.73 PRSNL HX OF TIA (TIA), AND CEREB INFRC W 12/14/2018 SABINE AGUIRRE MD Ot Z95.5 PRESENCE OF CORONARY ANGIOPLASTY IMPLANT 12/22/2018 SABINE AGUIRRE MD, Ot J18.9 PNEUMONIA, UNSPECIFIED ORGANISM Procedures There is no data. Results Test Result Range Complete blood count (CBC) with automated white blood cell (WBC) differential - 12/09/18 09:22 Blood leukocytes automated count (number/volume) 13.9 10*3/uL 4.3-11.0 Blood erythrocytes automated count (number/volume) 4.64 10*6/uL 4.35-5.85 Venous blood hemoglobin measurement (mass/volume) 14.2 g/dL 13.3-17.7 Blood hematocrit (volume fraction) 42 % 40-54 Automated erythrocyte mean corpuscular volume 90 [foz_us] 80-99 Automated erythrocyte mean corpuscular hemoglobin (mass per erythrocyte) 31 pg 25-34 Automated erythrocyte mean corpuscular hemoglobin concentration measurement (mass/volume) 34 g/dL 32-36 Automated erythrocyte distribution width ratio 13.5 % 10.0- 14.5 Automated blood platelet count (count/volume) 255 10*3/uL 130-400 Automated blood platelet mean volume measurement 9.1 [foz_us] 7.4-10.4 Automated blood neutrophils/100 leukocytes 95 % 42-75 Automated blood lymphocytes/100 leukocytes 2 % 12-44 Blood monocytes/100 leukocytes 2 % 0-12 Automated blood eosinophils/100 leukocytes 0 % 0-10 Automated blood basophils/100 leukocytes 0 % 0-10 Blood neutrophils automated count (number/volume) 13.2 10*3 1.8-7.8 Blood lymphocytes automated count (number/volume) 0.3 10*3 1.0-4.0 Blood monocytes automated count (number/volume) 0.3 10*3 0.0- 1.0 Automated eosinophil count 0.1 10*3/uL 0.0-0.3 Automated blood basophil count (count/volume) 0.0 10*3/uL 0.0-0.1 PT panel in platelet poor plasma by coagulation assay - 12/09/18 09:22 Prothrombin time (PT) in platelet poor plasma by coagulation assay 14.6 s 12.2-14.7 INR in platelet poor plasma or blood by coagulation assay 1.1 0.8-1.4 Activated partial thromboplastin time (aPTT) in platelet poor plasma bycoagulation assay - 12/09/18 09:22 Activated partial thromboplastin time (aPTT) in platelet poor plasma bycoagulation assay 30 s 24-35 Blood lactic acid measurement (moles/volume) - 12/09/18 09:22 Blood lactic acid measurement (moles/volume) 1.33 mmol/L 0.50- 2.00 Comprehensive metabolic panel - 12/09/18 09:22 Serum or plasma sodium measurement (moles/volume) 134 mmol/L 135-145 Serum or plasma potassium measurement (moles/volume) 4.4 mmol/L 3.6-5.0 Serum or plasma chloride measurement (moles/volume) 103 mmol/L 98-107 Carbon dioxide 26 mmol/L 21-32 Serum or plasma anion gap determination (moles/volume) 5 mmol/L 5-14 Serum or plasma urea nitrogen measurement (mass/volume) 24 mg/dL 7-18 Serum or plasma creatinine measurement (mass/volume) 1.06 mg/dL 0.60-1.30 Serum or plasma urea nitrogen/creatinine mass ratio 23 NRG Serum or plasma creatinine measurement with calculation of estimated glomerular filtration rate > NRG Serum or plasma glucose measurement (mass/volume) 95 mg/dL 70-105 Serum or plasma calcium measurement (mass/volume) 9.3 mg/dL 8.5-10.1 Serum or plasma total bilirubin measurement (mass/volume) 0.9 mg/dL 0.1-1.0 Serum or plasma alkaline phosphatase measurement (enzymatic activity/volume) 90 U/L 40-136 Serum or plasma aspartate aminotransferase measurement (enzymatic activity/volume) 22 U/L 5-34 Serum or plasma alanine aminotransferase measurement (enzymatic activity/volume) 15 U/L 0-55 Serum or plasma protein measurement (mass/volume) 7.3 g/dL 6.4-8.2 Serum or plasma albumin measurement (mass/volume) 3.9 g/dL 3.2-4.5 CALCIUM CORRECTED 9.4 mg/dL 8.5-10.1 Blood manual differential performed detection - 12/09/18 09:22 Blood monocytes/100 leukocytes 2 % NRG Manual blood segmented neutrophils/100 leukocytes 90 % NRG Blood band neutrophils/100 leukocytes 6 % NRG Manual blood lymphocytes/100 leukocytes 2 % NRG Manual eosinophils/100 leukocytes in nose 0 % NRG Manual blood basophils/100 leukocytes 0 % NRG Blood erythrocyte morphology finding identification NORMAL NRG Bacterial blood culture - 12/09/18 09:22 FREE TEXT EXTERNAL SUSCEPTIBILITY REPORT RCD 12/12 11:05 NRG QUANTITY OF GROWTH . NR Bacterial blood culture SEE [facility] - 12/09/18 09:22 Gentamicin susceptibility test by minimum inhibitory concentration <= NRG Levofloxacin susceptibility test by minimum inhibitory concentration > NRG Tobramycin susceptibility test by minimum inhibitory concentration <= NRG Piperacillin/tazobactam susceptibility test by minimum inhibitory concentration = NRG Ciprofloxacin susceptibility test by minimum inhibitory concentration > NRG Meropenem susceptibility test by minimum inhibitory concentration 0.5 NRG Aztreonam susceptibility test by minimum inhibitory concentration 8 NRG Cefepime susceptibility test by minimum inhibitory concentration 8 NRG Imipenem susceptibility test by minimum inhibitory concentration 2 NRG Ceftazidime susceptibility test by minimum inhibitory concentration <= NRG Bacterial blood culture - 12/09/18 09:38 FREE TEXT EXTERNAL SEE OTHER CULTURE FOR SUSCEPTIBILITY REP NRG QUANTITY OF GROWTH . NR Bacterial blood culture SEE COMMEN NR Complete urinalysis with reflex to culture - 12/09/18 10:55 Urine color determination YELLOW NRG Urine clarity determination CLEAR NRG Urine pH measurement by test strip 6.5 5-9 Specific gravity of urine by test strip 1.015 1.016-1.022 Urine protein assay by test strip, semi-quantitative NEGATIVE NEGATIVE Urine glucose detection by automated test strip NEGATIVE NEGATIVE Erythrocytes detection in urine sediment by light microscopy NEGATIVE NEGATIVE Urine ketones detection by automated test strip NEGATIVE NEGATIVE Urine nitrite detection by test strip NEGATIVE NEGATIVE Urine total bilirubin detection by test strip NEGATIVE NEGATIVE Urine urobilinogen measurement by automated test strip (mass/volume) NORMAL NORMAL Urine leukocyte esterase detection by dipstick NEGATIVE NEGATIVE Automated urine sediment erythrocyte count by microscopy (number/high power field) RARE NRG Automated urine sediment leukocyte count by microscopy (number/high power field) RARE NRG Bacteria detection in urine sediment by light microscopy NEGATIVE NRG Squamous epithelial cells detection in urine sediment by light microscopy RARE NRG Crystals detection in urine sediment by light microscopy NONE NRG Casts detection in urine sediment by light microscopy NONE NRG Mucus detection in urine sediment by light microscopy NEGATIVE NRG Complete urinalysis with reflex to culture CULTURE PENDING NRG Bacterial urine culture - 12/09/18 10:55 Bacterial urine culture NG NRG Complete blood count (CBC) with automated white blood cell (WBC) differential - 12/12/18 04:09 Blood leukocytes automated count (number/volume) 6.9 10*3/uL 4.3-11.0 Blood erythrocytes automated count (number/volume) 4.15 10*6/uL 4.35-5.85 Venous blood hemoglobin measurement (mass/volume) 12.9 g/dL 13.3-17.7 Blood hematocrit (volume fraction) 38 % 40-54 Automated erythrocyte mean corpuscular volume 90 [foz_us] 80-99 Automated erythrocyte mean corpuscular hemoglobin (mass per erythrocyte) 31 pg 25-34 Automated erythrocyte mean corpuscular hemoglobin concentration measurement (mass/volume) 34 g/dL 32-36 Automated erythrocyte distribution width ratio 13.3 % 10.0- 14.5 Automated blood platelet count (count/volume) 229 10*3/uL 130-400 Automated blood platelet mean volume measurement 9.5 [foz_us] 7.4-10.4 Automated blood neutrophils/100 leukocytes 59 % 42-75 Automated blood lymphocytes/100 leukocytes 16 % 12-44 Blood monocytes/100 leukocytes 18 % 0-12 Automated blood eosinophils/100 leukocytes 7 % 0-10 Automated blood basophils/100 leukocytes 1 % 0-10 Blood neutrophils automated count (number/volume) 4.1 10*3 1.8-7.8 Blood lymphocytes automated count (number/volume) 1.1 10*3 1.0-4.0 Blood monocytes automated count (number/volume) 1.2 10*3 0.0- 1.0 Automated eosinophil count 0.5 10*3/uL 0.0-0.3 Automated blood basophil count (count/volume) 0.0 10*3/uL 0.0-0.1 Encounters ACCT No. Visit Date/Time Discharge Status Pt. Type Provider Facility Loc./Unit Complaint [id number] 12/22/2018 13:02:00 12/22/2018 13:18:00 DIS Outpatient SABINE AGUIRRE MD [facility] [id number] 12/09/2018 12:02:00 12/14/2018 18:45:00 DIS Inpatient SABINE AGUIRRE MD [facility] 4TH SEPSIS;RLL PNEUMONIA;WEAKNESS
[2019-01-31] MEDS ORDERED: NS IV 500 ML 500 ML IV ONE ×2 (12:43→14:26)
[2019-01-31 12:52] LABS: BASOPHILS % (AUTO) 1 % (0-10); EOSINOPHILS # (AUTO) 0.2 10^3/uL (0.0-0.3); EOSINOPHILS % (AUTO) 3 % (0-10); HEMATOCRIT 43 % (40-54); HEMOGLOBIN 14.2 G/DL (13.3-17.7); LYMPHOCYTES # (AUTO) 1.1 X 10^3 (1.0-4.0); LYMPHOCYTES % (AUTO) 18 % (12-44); MEAN CORPUSCULAR HEMOGLOBIN 31 PG (25-34); MEAN CORPUSCULAR HGB CONC 33 G/DL (32-36); MEAN CORPUSCULAR VOLUME 92 FL (80-99); MONOCYTES # (AUTO) 0.9 X 10^3 (0.0-1.0); MONOCYTES % (AUTO) 15 % (0-12); NEUTROPHILS # (AUTO) 3.8 X 10^3 (1.8-7.8); NEUTROPHILS % (AUTO) 63 % (42-75); PLATELET COUNT 236 10^3/uL (130-400); RED CELL DISTRIBUTION WIDTH 12.9 % (10.0-14.5); WHITE BLOOD COUNT 6.1 10^3/uL (4.3-11.0)
[2019-01-31 12:58] LABS: FIBRIN DEGRADATION PRODUCTS 0.94 UG/ML (0.00-0.49); INR 1.1 (0.8-1.4); PROTHROMBIN TIME PATIENT 14.6 SEC (12.2-14.7)
--- NOTE | 2019-01-31 12:59 | ED Neurological Problem ---
General Chief Complaint: Neurological Problems Stated Complaint: CONFUSION Source: patient Exam Limitations: no limitations History of Present Illness Date Seen by Provider: Jan 31, 2019 Time Seen by Provider: 12:40 Initial Comments Here by EMS with report of event where he was confused and globally weak. There is concern about TIA. He is apparently had events previous that are somewhat similar although there was concerns about seizures. Patient is on Keppra. These have been intermittent over the last few years. Today he didn't eat breakfast well and apparently had acute onset of confusion where he did not know the year associated with dizziness and just not feeling well. This lasted about 30 minutes before resolution. Now his back to essentially baseline per he and the . 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 She is very well versed on his medical care. Patient denies chest pain, nausea, vomiting or current weakness. Denies vision problems. He is not dizzy with sitting up. Timing/Duration: 1/2 hour Severity: moderate, severe Associated Symptoms: confusion; No fever/chills, No seizures; trouble walking, weakness Allergies and Home Medications Allergies Coded Allergies: No Known Drug Allergies (Unverified , 12/09/18) Home Medications Cholecalciferol (Vitamin D3) 2,000 Unit Capsule, 2,000 UNIT PO DAILY, (Reported) Folic Acid 0.4 Mg Tablet, 0.4 MG PO DAILY, (Reported) Levetiracetam 750 Mg Tab.er.24h, 750 MG PO BID, (Reported) Patient Home Medication List Home Medication List Reviewed: Yes Review of Systems Review of Systems Constitutional: see HPI; No chills, No fever Eyes: No Symptoms Reported Ears, Nose, Mouth, Throat: no symptoms reported Respiratory: no symptoms reported Cardiovascular: No chest pain, No edema, No palpitations Gastrointestinal: No abdominal pain, No nausea, No vomiting Genitourinary: no symptoms reported Musculoskeletal: see HPI; No back pain; muscle weakness; No neck pain Skin: no symptoms reported Psychiatric/Neurological: See HPI All Other Systems Reviewed Negative Unless Noted: Yes Past Xuairjd-Nzrhpx-Yqvnfk Hx Past Med/Social Hx: Reviewed Nursing Past Med/Soc Hx Patient Social History Alcohol Use: Denies Use Recreational Drug Use: No Smoking Status: Never a Smoker Recent Hopitalizations: No Immunizations Up To Date Tetanus Booster (TDap): Unknown Seasonal Allergies Seasonal Allergies: No Past Medical History Surgeries: Yes (ESTEFANY IN L FEMUR, FOOT) Coronary Stent Respiratory: No Cardiac: Yes Coronary Artery Disease Neurological: Yes (SHORT TERM MEMORY LOSS) Concussion, Dementia, Seizure Disorder, TIA Reproductive Disorders: No Genitourinary: No Gastrointestinal: Yes (gastroparesis) Musculoskeletal: No Endocrine: No HEENT: No Cancer: No Psychosocial: No Integumentary: No Family Medical History Reviewed Nursing Family Hx No Pertinent Family Hx Physical Exam Vital Signs Vital Signs - First Documented 01/31/19 12:22 Temp 96.7 Pulse 76 Resp 18 B/P (MAP) 131/74 (93) Pulse Ox 98 O2 Delivery Room Air Capillary Refill : Height, Weight, BMI Height: 5'10.00" Weight: 187lbs. 0.0oz. 84.488778ut; 26.8 BMI Method:Stated General Appearance: WD/WN, no apparent distress HEENT: PERRL/EOMI, pharynx normal Neck: full range of motion, supple Respiratory: lungs clear, normal breath sounds Cardiovascular: regular rate, rhythm, no murmur Peripheral Pulses: 2+ Dorsalis Pedis (R), 2+ Left Dors-Pedis (L), 2+ Radial Pulses (R), 2+ Radial Pulses (L) Gastrointestinal: normal bowel sounds, non tender, soft, no organomegaly Back: normal inspection, no CVA tenderness, no vertebral tenderness Extremities: non-tender, normal inspection Neurologic/Psychiatric: alert, normal mood/affect Crainal Nerves: normal hearing, normal speech, PERRL Coordination/Gait: normal finger to nose Motor/Sensory: no motor deficit, no sensory deficit, no pronator drift Skin: normal color, warm/dry Progress/Results/Core Measures Results/Orders Lab Results Laboratory Tests Test 01/31/19 12:37 01/31/19 14:11 Range/Units White Blood Count 6.1 4.3-11.0 10^3/uL Red Blood Count 4.62 4.35-5.85 10^6/uL Hemoglobin 14.2 13.3-17.7 G/DL Hematocrit 43 40-54 % Mean Corpuscular Volume 92 80-99 FL Mean Corpuscular Hemoglobin 31 25-34 PG Mean Corpuscular Hemoglobin Concent 33 32-36 G/DL Red Cell Distribution Width 12.9 10.0-14.5 % Platelet Count 236 130-400 10^3/uL Mean Platelet Volume 9.0 7.4-10.4 FL Neutrophils (%) (Auto) 63 42-75 % Lymphocytes (%) (Auto) 18 12-44 % Monocytes (%) (Auto) 15 H 0-12 % Eosinophils (%) (Auto) 3 0-10 % Basophils (%) (Auto) 1 0-10 % Neutrophils # (Auto) 3.8 1.8-7.8 X 10^3 Lymphocytes # (Auto) 1.1 1.0-4.0 X 10^3 Monocytes # (Auto) 0.9 0.0-1.0 X 10^3 Eosinophils # (Auto) 0.2 0.0-0.3 10^3/uL Basophils # (Auto) 0.0 0.0-0.1 10^3/uL Prothrombin Time 14.6 12.2-14.7 SEC INR Comment 1.1 0.8-1.4 Activated Partial Thromboplast Time 30 24-35 SEC D-Dimer 0.94 H 0.00-0.49 UG/ML Sodium Level 131 L 135-145 MMOL/L Potassium Level 4.0 3.6-5.0 MMOL/L Chloride Level 100 98-107 MMOL/L Carbon Dioxide Level 23 21-32 MMOL/L Anion Gap 8 5-14 MMOL/L Blood Urea Nitrogen 14 7-18 MG/DL Creatinine 1.09 0.60-1.30 MG/DL Estimat Glomerular Filtration Rate > 60 BUN/Creatinine Ratio 13 Glucose Level 85 70-105 MG/DL Calcium Level 9.3 8.5-10.1 MG/DL Corrected Calcium 9.4 8.5-10.1 MG/DL Total Bilirubin 0.6 0.1-1.0 MG/DL Aspartate Amino Transf (AST/SGOT) 21 5-34 U/L Alanine Aminotransferase (ALT/SGPT) 14 0-55 U/L Alkaline Phosphatase 84 40-136 U/L Troponin I < 0.028 <0.028 NG/ML Total Protein 7.5 6.4-8.2 GM/DL Albumin 3.9 3.2-4.5 GM/DL Urine Color YELLOW Urine Clarity CLEAR Urine pH 6 5-9 Urine Specific [place] 1.010 L 1.016-1.022 Urine Protein NEGATIVE NEGATIVE Urine Glucose (UA) NEGATIVE NEGATIVE Urine Ketones NEGATIVE NEGATIVE Urine Nitrite NEGATIVE NEGATIVE Urine Bilirubin NEGATIVE NEGATIVE Urine Urobilinogen NORMAL NORMAL MG/DL Urine Leukocyte Esterase NEGATIVE NEGATIVE Urine RBC (Auto) 1+ H NEGATIVE Urine RBC 0-2 /HPF Urine WBC NONE /HPF Urine Squamous Epithelial Cells RARE /HPF Urine Crystals NONE /LPF Urine Bacteria NEGATIVE /HPF Urine Casts NONE /LPF Urine Mucus NEGATIVE /LPF Urine Culture Indicated NO My Orders Orders - WALTER CONNELLY MD Cbc With Automated Diff (01/31/19 12:43) Protime With Inr (01/31/19 12:43) Partial Thromboplastin Time (01/31/19 12:43) Comprehensive Metabolic Panel (01/31/19 12:43) Fibrin Degradation Products (01/31/19 12:43) Troponin I (01/31/19 12:43) Ua Culture If Indicated (01/31/19 12:43) Chest 1 View, Ap/Pa Only (01/31/19 12:43) Ekg Tracing (01/31/19 12:43) Nothing By Mouth (01/31/19 Dinner) Accucheck Stat ONCE (01/31/19 12:43) Vital Signs Stroke Patient Q15M (01/31/19 12:43) Ct Head Wo-R/O Stroke (01/31/19 12:43) Intake & Output 06,14,22 (01/31/19 12:43) Monitor-Rhythm Ecg Trace Only (01/31/19 12:43) Dysphagia Screening Tool (01/31/19 12:43) Lipid Panel (02/01/19 06:00) Ns Iv 500 Ml (Sodium Chloride 0.9%) (01/31/19 12:43) Ct Angio Head/Neck (01/31/19 13:24) Iohexol Injection (Omnipaque 350 Mg/Ml 1 (01/31/19 13:45) Received Contrast (Hold Metformin- Contr (01/31/19 13:45) Ns (Ivpb) (Sodium Chloride 0.9% Ivpb Bag (01/31/19 13:45) Ed Iv/Invasive Line Start (01/31/19 14:26) Ns Iv 500 Ml (Sodium Chloride 0.9%) (01/31/19 14:26) Medications Given in ED Current Medications Medications Dose Ordered Sig/Chaparrita Route Start Time Stop Time Status Last Admin Dose Admin Iohexol 75 ml ONCE ONCE IV 01/31/19 13:45 01/31/19 13:46 DC 01/31/19 13:34 75 ML Sodium Chloride 100 ml ONCE ONCE IV 01/31/19 13:45 01/31/19 13:46 DC 01/31/19 13:34 80 ML Sodium Chloride 500 ml @ 0 mls/hr Q0M ONCE IV 01/31/19 12:43 01/31/19 12:46 DC 01/31/19 12:55 500 MLS/HR Sodium Chloride 500 ml @ 0 mls/hr Q0M ONCE IV 01/31/19 14:26 01/31/19 14:32 DC 01/31/19 14:38 500 MLS/HR Vital Signs/I&O 01/31/19 12:22 Temp 96.7 Pulse 76 Resp 18 B/P (MAP) 131/74 (93) Pulse Ox 98 O2 Delivery Room Air Progress Progress Note : Progress Note Seen and evaluated. IV by EMS. Labs, EKG, chest x-ray, UA and CT head ordered. Normal saline 500 mL bolus ordered. Monitor patient. 1335: We will go ahead and get CT angiogram of the head and neck given his history. [address]: No acute findings on any evaluation. UA negative. Repeat bolus of 500 mL normal saline done. Patient doing much better without any distress and he reports back to normal for which the agrees. Discharged home with return precautions. Patient and family verbalize understanding instructions and agreement with plan. Initial ECG Impression Date: Jan 31, 2019 Initial ECG Impression Time: 13:02 Initial ECG Rate: 72 Initial ECG Rhythm: Normal Sinus Initial ECG Comparisson: No Previous ECG Available Comment Sinus rhythm with first degree AV block. No evidence of ST elevation [place]. No previous available for comparison. Interpreted by me. These 2, 3 and aVF are low voltage. Diagnostic Imaging Diagonstic Imaging: Xray Plain Films/CT/US/NM/MRI: chest Comments [facility]. [place], [place] NAME: IKER SOL Monae [facility] REC#: [id number] PT STATUS: REG ER : 1930 PHYSICIAN: WALTER CONNELLY MD ADMIT DATE: 01/31/19/ER Draft Date of Exam:01/31/19 CHEST 1 VIEW, AP/PA ONLY EXAMINATION: Portable erect AP chest at 01:09 p.m. INDICATION: Respiratory distress. FINDINGS: The heart size is within normal limits and stable when compared to 12/09/2018. The previous study did show blunting of the left costophrenic angle. The possibility that this density was related to pleural thickening and/or fluid was raised. On this study that finding is again evident and does not seem to have changed significantly. I suspect that this appearance is secondary to pleural thickening. The left upper lung and right lung are generally clear. The crowded bronchovascular markings in the right infrahilar region seen previously are again evident and no different. The mediastinum is not widened. The osseous structures are intact. IMPRESSION: 1. When compared to the previous study, there has been no significant change. There is no acute cardiopulmonary abnormality noted. 2. The blunted appearance of the left costophrenic angle seen previously is most likely due to pleural thickening. Dictated on workstation # [id number] Dict: 01/31/19 1344 Trans: 01/31/19 1353 [id number] Interpreted by: WILFRED ZEE MD Electronically signed by: Enedelia Imaging: CT Plain Films/CT/US/NM/MRI: head Comments [facility] [place], [place] NAME: IKER SOL [facility] REC#: [id number] PT STATUS: REG ER : 1930 PHYSICIAN: WALTER CONNELLY MD ADMIT DATE: 01/31/19/ER Draft Date of Exam:01/31/19 CT HEAD WO-R/O STROKE PROCEDURE: CT head wo r/o stroke. TECHNIQUE: Multiple contiguous axial images were obtained through the brain without the use of intravenous contrast. Auto Exposure Controls were utilized during the CT exam to meet ALARA standards for radiation dose reduction. INDICATION: CVA, confusion. COMPARISON: There are no prior studies available for comparison. FINDINGS: There is no mass, shift of the midline, or hemorrhage to indicate an acute abnormality. The normal tentorial blush is evident. The ventricles are prominent, and the size of ventricles is probably related to the underlying cortical atrophy and periventricular encephalomalacia. The bone windows show no sign of a fracture or of a destructive lesion. The orbits are symmetrical and within normal limits. The sinuses are generally clear where visualized. IMPRESSION: 1. There is no evidence for an acute intracranial abnormality. 2. Reportedly, CTA of the head and neck is pending for further study. Dictated on workstation # [id number] Dict: 01/31/19 1343 Trans: 01/31/19 1350 [id number] Interpreted by: WILFRED ZEE MD Electronically signed by: Diagonstic Imaging: CT Plain Films/CT/US/NM/MRI: head, other Comments [facility] [place] NAME: SWETAIKER [facility] REC#: [id number] PT STATUS: REG ER : 1930 PHYSICIAN: WALTER CONNELLY MD ADMIT DATE: 01/31/19/ER Draft Date of Exam:01/31/19 CT ANGIO HEAD/NECK PROCEDURE: CT angiography of the head and CT angiography of the neck with and without contrast. TECHNIQUE: Contiguous noncontrast images were obtained from the skull base through the vertex. After intravenous contrast administration, helical CT angiography of the neck was performed. Source data was reformatted into 3D MIP projections. Delayed post contrast acquisition was also obtained. Auto Exposure Controls were utilized during the CT exam to meet ALARA standards for radiation dose reduction. INDICATION: Altered mental status and confusion The delayed postcontrast enhanced head CT revealed no mass or abnormal enhancement. There is enhancement of major dural venous sinuses, atrophy and white matter disease chronic. No sulcal effacement. CT angiogram neck: The vertebral arteries are patent. The right dominant, the left is somewhat small but nonfocal and nonacute. The common carotids are patent, The carotid bulbs and bifurcations patent. The cervical internal carotids tortuous but patent. No significant stenosis, occlusion, dissection or intimal irregularities. CT angiogram head: There is some vertebral basilar ectasia without focal aneurysm or stenosis of the intrathecal vertebral arteries. No thrombus. The bilateral pediatrician/medical doctor are patent. The intracranial ICAs are patent and tortuous. The A1 segments, A-comm, and the anterior cerebral arteries patent. The bilateral middle cerebral arterial segments and primary branches are patent. No large vessel occlusion or intraluminal thrombus. No heath aneurysm or vascular malformation. IMPRESSION: No LVO, aneurysm, thrombus or occlusive segment. No acute finding at CT angio neck. Dictated on workstation # [id number] Dict: 01/31/19 1357 Trans: 01/31/[address] [facility] [id number] Interpreted by: ELIZABETH VARGAS Electronically signed by: Departure Impression Primary Impression: Transient cerebral ischemia Qualified Codes: G45.9 - Transient cerebral ischemic attack, unspecified Disposition: 01 HOME, SELF-CARE Condition: Improved Departure-Patient Inst. Decision time for Depature: 14:47 Referrals: WESLEY CASE DO (PCP) Primary Care Physician Patient Instructions: Transient Ischemic Attack (DC) Add. Discharge Instructions: All discharge instructions reviewed with patient and/or family. Voiced understanding. continue previous home meds as prescribed. Eat a normal diet and drink an adequate amount of fluids. Follow-up with your doctor and 2-3 days for recheck and further evaluation. Return for worse pain, fever, vomiting, weakness, breat sergio problems or other concerns as needed. WALTER CONNELLY MD Jan 31, 2019 12:59
[2019-01-31 13:05] LABS: ALANINE AMINOTRANSFERASE 14 U/L (0-55); ALBUMIN 3.9 GM/DL (3.2-4.5); ALKALINE PHOSPHATASE 84 U/L (40-136); BILIRUBIN,TOTAL 0.6 MG/DL (0.1-1.0); BUN/CREATININE RATIO 13; CALCIUM 9.3 MG/DL (8.5-10.1); CARBON DIOXIDE 23 MMOL/L (21-32); CHLORIDE 100 MMOL/L (98-107); CREATININE SERUM 1.09 MG/DL (0.60-1.30); GFR ESTIMATED > 60; GLUCOSE 85 MG/DL (70-105); SODIUM 131 MMOL/L (135-145); TOTAL PROTEIN 7.5 GM/DL (6.4-8.2)
[2019-01-31] MEDS ORDERED: LEVE750T5 (13:09)
[2019-01-31] MEDS ORDERED: HOLD METFORMIN - RECEIVED CONTRAST 20 ML VIAL IV SCH (13:45)
[2019-01-31] MEDS ORDERED: NS 100 ML (IVPB) BAG IV ONE (13:45)
[2019-01-31] MEDS ORDERED: IOHEXOL 350 MG/ML 100 ML (OMNIPAQUE 350) VIAL IV ONE (13:45)
--- NOTE | 2019-01-31 13:51 | Diagnostic Imaging Report ---
PROCEDURE: CT head wo r/o stroke. TECHNIQUE: Multiple contiguous axial images were obtained through the brain without the use of intravenous contrast. Auto Exposure Controls were utilized during the CT exam to meet ALARA standards for radiation dose reduction. INDICATION: CVA, confusion. COMPARISON: There are no prior studies available for comparison. FINDINGS: There is no mass, shift of the midline, or hemorrhage to indicate an acute abnormality. The normal tentorial blush is evident. The ventricles are prominent, and the size of ventricles is probably related to the underlying cortical atrophy and periventricular encephalomalacia. The bone windows show no sign of a fracture or of a destructive lesion. The orbits are symmetrical and within normal limits. The sinuses are generally clear where visualized. IMPRESSION: 1. There is no evidence for an acute intracranial abnormality. 2. Reportedly, CTA of the head and neck is pending for further study. Dictated by: Dictated on workstation # [id number]
--- NOTE | 2019-01-31 13:54 | Diagnostic Imaging Report ---
EXAMINATION: Portable erect AP chest at 01:09 p.m. INDICATION: Respiratory distress. FINDINGS: The heart size is within normal limits and stable when compared to 12/09/2018. The previous study did show blunting of the left costophrenic angle. The possibility that this density was related to pleural thickening and/or fluid was raised. On this study that finding is again evident and does not seem to have changed significantly. I suspect that this appearance is secondary to pleural thickening. The left upper lung and right lung are generally clear. The crowded bronchovascular markings in the right infrahilar region seen previously are again evident and no different. The mediastinum is not widened. The osseous structures are intact. IMPRESSION: 1. When compared to the previous study, there has been no significant change. There is no acute cardiopulmonary abnormality noted. 2. The blunted appearance of the left costophrenic angle seen previously is most likely due to pleural thickening. Dictated by: Dictated on workstation # [id number]
--- NOTE | 2019-01-31 14:06 | NUR ---
TO ROOM HAS URINAL ENCOURGED TO TRY AND GIVE UA.
--- NOTE | 2019-01-31 14:09 | Diagnostic Imaging Report ---
PROCEDURE: CT angiography of the head and CT angiography of the neck with and without contrast. TECHNIQUE: Contiguous noncontrast images were obtained from the skull base through the vertex. After intravenous contrast administration, helical CT angiography of the neck was performed. Source data was reformatted into 3D MIP projections. Delayed post contrast acquisition was also obtained. Auto Exposure Controls were utilized during the CT exam to meet ALARA standards for radiation dose reduction. INDICATION: Altered mental status and confusion The delayed postcontrast enhanced head CT revealed no mass or abnormal enhancement. There is enhancement of major dural venous sinuses, atrophy and white matter disease chronic. No sulcal effacement. CT angiogram neck: The vertebral arteries are patent. The right dominant, the left is somewhat small but nonfocal and nonacute. The common carotids are patent, The carotid bulbs and bifurcations patent. The cervical internal carotids tortuous but patent. No significant stenosis, occlusion, dissection or intimal irregularities. CT angiogram head: There is some vertebral basilar ectasia without focal aneurysm or stenosis of the intrathecal vertebral arteries. No thrombus. The bilateral english composition teacher are patent. The intracranial ICAs are patent and tortuous. The A1 segments, A-comm, and the anterior cerebral arteries patent. The bilateral middle cerebral arterial segments and primary branches are patent. No large vessel occlusion or intraluminal thrombus. No heath aneurysm or vascular malformation. IMPRESSION: No LVO, aneurysm, thrombus or occlusive segment. No acute finding at CT angio neck. Dictated by: Dictated on workstation # [id number]
[2019-01-31 14:25] LABS: BILIRUBIN,URINE NEGATIVE (NEGATIVE); CLARITY,URINE CLEAR; COLOR,URINE YELLOW; GLUCOSE, URINE (UA) NEGATIVE (NEGATIVE); KETONES,URINE NEGATIVE (NEGATIVE); LEUKOCYTE ESTERASE ,URINE NEGATIVE (NEGATIVE); NITRITE,URINE NEGATIVE (NEGATIVE); PH,URINE 6 (5-9); PROTEIN,URINE NEGATIVE (NEGATIVE); UROBILINOGEN,URINE NORMAL (NORMAL)
[2019-01-31 14:29] LABS: BACTERIA,URINE NEGATIVE /HPF; RBC,URINE 0-2 /HPF; SQUAMOUS EPITHELIAL CELL,UR RARE /HPF
[2019-01-31 15:43] VITALS: BP 132/65
== END 2019-01-31 15:43 | disposition home or self-care (01) ==
LOC: EDUNIT# 12:22 → ER 12:23
DX: G45.9 Transient cerebral ischemic attack, unspecified (principal); I25.10 Atherosclerotic heart disease of native coronary artery without angina pectoris; G40.909 Epilepsy, unspecified, not intractable, without status epilepticus; F03.90 Unspecified dementia, unspecified severity, without behavioral disturbance, psychotic disturbance, mood disturbance, and anxiety; K31.84 Gastroparesis; Z95.5 Presence of coronary angioplasty implant and graft
CPT/HCPCS: 36415; 70450; 70496; 70498; 71045; 80053; 81000; 84484; 85025; 85379; 85610; 85730; 93005; 93041; 96360